=== PATIENT | male | born 1990 | race Two or more races ===

== ENCOUNTER 2019-02-10 19:38 | Emergency (ER) | payer OTHER ==
[2019-02-10 19:59] VITALS: BP 115/83; PULSE 90; TEMP 98.7; BMI 19.3
== END 2019-02-10 20:16 | disposition home or self-care (01) ==
LOC: FER 19:38
PROC: 0HQ1XZZ Repair Face Skin, External Approach (ICD-10-PCS; principal; 2019-02-10)
DX: S01.81XA Laceration without foreign body of other part of head, initial encounter (principal); W51.XXXA Accidental striking against or bumped into by another person, initial encounter; Y93.69 Activity, other involving other sports and athletics played as a team or group; Y92.89 Other specified places as the place of occurrence of the external cause; F17.210 Nicotine dependence, cigarettes, uncomplicated
CPT/HCPCS: 99281-25